=== PATIENT | female | born 1970 | race Caucasian/White ===

== ENCOUNTER 2024-09-28 16:09 | Emergency (ER) | payer OTHER, SELFPAY ==
[2024-09-28 16:19] VITALS: BP 104/71
[2024-09-28 19:31] VITALS: BMI 24.8
[2024-09-28 19:34] VITALS: BP 92/55
[2024-09-28 20:00] VITALS: BP 98/60
[2024-09-28] MEDS: DECADRON 10 MG IV (20:05)
[2024-09-28] MEDS: TORADOL 30 MG IV (20:05)
[2024-09-28 20:20] LABS: % Basophils 1.5 % (0-2); % Eosinophils 5.6 % (0-6); % Immature Granulocytes 0.2 % (0-0.5); % Lymphocytes 29.4 % (20.5-51.1); % Monocytes 10.6 % (1.7-9.3); % Neutrophils 52.7 % (42.2-75.2); Absolute Basophils 0.1 10^3/uL (0-0.2); Absolute Eosinophils 0.3 10^3/uL (0-0.7); Absolute Lymphocytes 1.6 10^3/uL (1.2-3.4); Absolute Monocytes 0.6 10^3/uL (0.1-0.6); Absolute Neutrophils 2.8 10^3/uL (1.4-6.5); Hematocrit 38.9 % (37.0-47.0); Hemoglobin 13.7 g/dL (12.0-16.0); Mean Corp Hgb Conc. 35.2 g/dL (33.0-37.0); Mean Corpuscular Hgb 30.9 pg (27.0-31.0); Mean Corpuscular Volume 87.6 fL (81.0-99.0); Mean Platelet Volume 9.1 fL (7.4-10.4); Nucleated Red Blood Cells % 0 %; Platelet Count 315 10^3/uL (130-400); Red Blood Cell Count 4.44 10^6/uL (4.20-5.40); Red Cell Dist. Width 12.3 % (11.5-14.5); White Blood Cell Count 5.4 10^3/uL (4.8-10.8)
[2024-09-28 20:41] LABS: Blood Urea Nitrogen 17 mg/dl (7-17); Calcium 9.6 mg/dl (8.4-10.2); Carbon Dioxide 25 mmol/L (22-30); Chloride 103 mmol/L (98-107); Estimated Creatinine Clearance 58 ml/min; Glucose 75 mg/dl (70-99); Potassium 4.6 mmol/L (3.5-5.1); Sodium 136 mmol/L (135-145); eGFR > 60.00
[2024-09-28 21:00] VITALS: BP 100/56
[2024-09-28] MEDS: DILAUDID 0.5 MG IV ×2 (21:00→23:45)
[2024-09-28] MEDS: ZOFRAN 4 MG IV (21:00)
[2024-09-28 22:00] VITALS: BP 98/60
[2024-09-28 23:30] VITALS: BP 110/58
--- NOTE | 2024-09-29 00:42 | ED.GENMED ---
History of Present Illness
General
Chief Complaint: Back Pain
Source: patient
Exam Limitations: none
Time Seen by Provider: 09/28/24 19:21
Nursing documentation reviewed up to this point in time: agreed with
Past History
Past History
ED Past Medical History: Asthma
ED Past Surgical History: Cholecystectomy, and Other (Gastric bypass surgery )
Social History
Tobacco: Non-smoker
Alcohol: None
Drug: None
Personal: Other
Living: with family
Employment: Other
Family History
Family History: Other
Phy Exam
General Physical Exam
General Presentation: moderate distress
General age: appears stated age
General Skin: warm and dry
General Habitus: normal
General Mental: alert
Gastrointestinal Exam
Gastrointestinal Exam: non tender and soft
Motor
Gait: normal
Tremors: none
Bilateral lower extremities: 4
Sensory
Sensory Exam: intact
Reflexes
Reflexes: +3: Left patellar and +3: Right patellar
Musculoskeletal Exam
Musculoskeletal Exam: full ROM, no edema and neuro vasc intact
Skin Exam
Skin Exam: normal color, warm/dry and no rash
Psychiatric Exam
Psychiatric Exam: normal mood/affect
Course
Orders/Labs/Results
Orders:
Orders
09/28/24 19:41
Dexamethasone Sod Phosphate [Decadron] 10 mg IV NOW STA
09/28/24 19:42
Ketorolac [Toradol] 30 mg IV NOW STA
09/28/24 20:05
Basic Metabolic Panel Urgent
Complete Blood Count/With Diff Urgent
09/28/24 20:47
HYDROmorphone [Dilaudid] 0.5 mg IV NOW STA
Ondansetron Injectable [Zofran] 4 mg IV NOW STA
09/28/24 22:17
Acetaminophen 1000MG/100Ml [Ofirmev] 1,000 mg in 100 ml IV ONCE
Acetaminophen IV Indication:: ED Narcotic Naive Pt-ONCE
09/28/24 22:29
US Periph Venous LOWER Ext RT Urgent
Comment:
Reason For Exam: pain and swelling
09/28/24 23:36
HYDROmorphone [Dilaudid] 0.5 mg IV NOW STA
Abnormal Lab Results
09/28/24
20:05
Monocytes % 10.6 H %
(1.7-9.3)
09/28/24 20:05
09/28/24 20:05
Vital Signs
Initial and Last Documented VS:
Initial Vital Signs
Temp Pulse Resp BP Pulse Ox
99.0 F 88 18 104/71 96
09/28/24 16:19 09/28/24 16:19 09/28/24 16:19 09/28/24 16:19 09/28/24 16:19
Last Documented Vital Signs
Temp Pulse Resp BP Pulse Ox
99.0 F 78 18 110/58 98
09/28/24 16:19 09/28/24 22:00 09/28/24 22:00 09/28/24 23:30 09/28/24 23:30
ED Attending Note
-
Portions of this chart may have been created with voice recognition software.� Occasional wrong word or��sound alike� substitutions may have occurred due to the inherent limitations of voice recognition software.
Discharge Plan
Departure
Patient Disposition: Home (Routine Discharge)
Date of Disposition: 09/28/24
Time of Disposition: 23:36
Patient with high blood pressure during this ER visit?: No
Condition: Good
Covid-19: Not Applicable
Discharge Problem:
Sciatic leg pain
Instructions: Sciatica (DC)
Prescriptions:
New
prednisone 10 mg Tablet
See Rx Instructions .ROUTE .COMPLEX Qty: 30 0RF
Rx Instructions:
Take By Mouth:
40 mg daily x3 days, 30 mg daily x3 days,
20 mg daily x3 days, 10 mg daily x3 days.
ketorolac 10 mg tablet
10 mg PO Q8H PRN (Reason: Pain) 4 Days Qty: 12 0RF
No Action
lamotrigine [Lamictal] 200 MG tablet
300 mg PO DAILY
levothyroxine 50 MCG tablet
50 mcg PO DAILY
fluoxetine 20 MG capsule
20 mg PO DAILY
chlorpheniramine-pseudoephed 1 TAB tablet
1 tab PO PRN PRN (Reason: allergy)
ibuprofen 600 MG tablet
600 mg PO Q6HPRN PRN (Reason: pain) Qty: 20 0RF
venlafaxine [Effexor XR] 150 mg Capsule,Extended Release 24hr
150 mg PO DAILY
pantoprazole [Protonix] 40 mg Tablet,Delayed Release (Dr/Ec)
40 mg PO DAILY
sucralfate 1 GM/10 ML suspension
1 gm PO BID
Referrals:
Jacqueline Warner CRNP [Family Provider] -
Interventions
Interventions:
*Risk Screen - Suicide Last Done: 09/28/24 16:19
*General Assessment Last Done: 09/28/24 19:32
*Neglect/Abuse Screening Last Done: 09/28/24 19:35
*ED- Fall Risk Assessment Last Done: 09/28/24 19:32
*ED COVID-19 Vaccine History Last Done: 09/28/24 19:32
*Nursing Disposition Last Done: 09/29/24 00:01
ED-Musculoskeletal Assessment Last Done: 09/28/24 19:39
Discharge Date and Time
Discharge Date/Time: 09/29/24 00:02
Print Language: [id number]
== END 2024-09-29 00:02 | disposition home or self-care (01) ==
LOC: EMR 16:09
PROVIDERS: Nurse Practitioner; EMERGENCY PHYSICIAN Emergency Medicine; FAMILY PHYSICIAN Nurse Practitioner Family
DX: M54.41 Lumbago with sciatica, right side (principal); M79.604 Pain in right leg; J45.909 Unspecified asthma, uncomplicated; I10 Essential (primary) hypertension; G47.30 Sleep apnea, unspecified; E03.9 Hypothyroidism, unspecified; F41.9 Anxiety disorder, unspecified; F32.A Depression, unspecified; F31.9 Bipolar disorder, unspecified; Z98.84 Bariatric surgery status; Z90.49 Acquired absence of other specified parts of digestive tract
CPT/HCPCS: 99284; 80048; 85025; 93971

== ENCOUNTER 2024-10-02 07:44 | Inpatient (IN) | payer OTHER, SELFPAY ==
[2024-09-30 10:50] VITALS: BMI 26.6
[2024-09-30 10:52] VITALS: BP 148/97
--- NOTE | 2024-09-30 11:48 | ED.GENMED ---
History of Present Illness
General
Chief Complaint: Musculo-Skeletal Complaint
Source: patient
Exam Limitations: none
Time Seen by Provider: 09/30/24 11:21
Nursing documentation reviewed up to this point in time: agreed with
History of Present Illness
History of Present Illness:
Patient is a 54-year-old female with history hypertension presenting to the emergency department with intractable right leg pain now radiating to right low back. Patient seen in ED 2 days ago for similar symptoms, given IV steroids, IV narcotic
medication discharged with suspected sciatica pain.
Patient presents again today with worsening pain, significantly worse with movement. Patient states she has been unable to move much at home. She is having difficulties getting to the bathroom. Pain is most severe in her right lower leg although
it is now radiating up into her right low back.
She denies any associated fever, chills, numbness/tingling, or weakness in lower extremities. No groin paresthesia or loss of bowel/bladder function. She has no history of IV drug use.
Patient denies any recent trauma.
Past History
Past History
ED Past Medical History: Asthma
ED Past Surgical History: Cholecystectomy, and Other (Gastric bypass surgery )
Social History
Tobacco: Non-smoker
Alcohol: None
Drug: None
Personal: Other
Living: with family
Employment: Other
Family History
Family History: Other
Review of Systems
Review of Systems
Allergies reviewed?: Yes
All Other Systems: ROS reviewed and negative except as documented in HPI and ROS
Phy Exam
Physical Exam
Physical Exam:
Vitals: Hypertensive on arrival,
General: Patient is writhing in pain and moaning on initial evaluation
Skin: Warm and dry, no rashes or lesions
Head: Normocephalic, atraumatic
Eyes: Sclera nonicteric.
Throat: Protecting airway
Neck: Normal ROM, no cervical spine tenderness, no meningismus
Cardiac: Regular rate and rhythm, no murmurs.
Pulm: Normal respiratory effort, no wheezes, rales, rhonchi heard on exam.
Abdomen: Abdomen soft and nontender.
Back: No midline spinal tenderness. No rash or ecchymosis. Minimal tenderness at right SI joint
Extremities: Tenderness to right calf without any obvious deformity. No bony tenderness of the right lower extremity. No erythema, warmth, or edema extremity. Sensation intact in RLE with palpable DP pulse and normal capillary refill. Strength
5/5 in b/l lower extremities.
Neuro: AAOx3. CN II-XII intact. No focal neurologic deficits.
Psychiatric: Normal affect.
Course
Orders/Labs/Results
Orders:
Orders
09/30/24 Breakfast
Regular
At Your Request: Full Participation
09/30/24 11:46
HYDROmorphone [Dilaudid] 0.5 mg IV NOW STA
Lidocaine [Lidocaine 4% Patch] 1 patch TOPICAL NOW STA
Apply Lidocaine patch(s) to:: Right lower back
Ondansetron Injectable [Zofran] 4 mg IV NOW STA
Lumbar Spine, 2 or 3 View [CR Lumbar Spine 2 Or 3 Views] Urgent
Comment:
Reason For Exam: Right low back pain radiating to right leg
09/30/24 12:11
Basic Metabolic Panel Urgent
Complete Blood Count/With Diff Urgent
Magnesium Urgent
Total CK [Creatine Phosphokinase] Urgent
09/30/24 13:07
diazePAM [Valium Injection] 2 mg IV NOW STA
09/30/24 13:43
PT Consult [Pt Eval And Treat] Urgent
Activity Level: As Tolerated
09/30/24 16:00
Acetaminophen [Tylenol] 1,000 mg PO TID
09/30/24 16:22
Admit/Transfer Patient As Directed
Co-Sign Provider:
Level of Care: Observation services
Assign to:: Medical/Surgical
Physician / Group: Shelley
Diagnosis: Back Pain
PRN Pain Medication Management As Directed
May give lesser potent ordered pain med per pt: Yes
preference::
Protocol:: Medication orders for pain may be administered in a
manner that supports deferring to patient preference
when the pt is:
- Requesting an ordered lesser potent pain medication.
Least to most potent pain medications are defined
as: acetaminophen < NSAID < tramadol < opioids
(morphine, oxycodone, hydromorphone).
- Requesting a lesser dose of the same medication IF
ORDERED.
- Requesting a less intrusive route of administration
if both routes are prescribed by the provider (PO <
IV).
09/30/24 16:23
Code Status As Directed
Resuscitation Status: Full Code
09/30/24 16:58
HYDROmorphone [Dilaudid] 0.25 mg IV Q3HPRN PRN
09/30/24 19:26
Ketorolac [Toradol] 10 mg IV Q6HPRN PRN
diazePAM [Valium Injection] 2 mg IV Q6HPRN PRN
09/30/24 19:26
Activity As Directed
Activity Level: Out of Bed-Early Mobility
With Assistance
Pneumatic Compression Sleeves As Directed
Type: Knee high
Vital Signs As Directed
Frequency: Per unit guidelines
Ot Eval And Treat Routine
Pt Eval And Treat Routine
Activity Level: Out of Bed-Early Mobility
DX Deep Vein Thrombosis Video Routine
09/30/24 20:00
Sucralfate [Carafate] 1 gram PO BID
09/30/24 22:00
Doxepin [Sinequan] 10 mg PO HS
Gabapentin [Neurontin] 800 mg PO TID
Lamotrigine [Lamictal] 300 mg PO HS
Propranolol [Inderal] 40 mg PO TID
10/01/24 06:00
Levothyroxine [Synthroid] 50 mcg PO DAILY@0600
10/01/24 08:00
Lidocaine [Lidocaine 4% Patch] 1 patch TOPICAL DAILY
Apply Lidocaine patch(s) to:: right buttock
Pantoprazole [Protonix] 40 mg PO DAILY
Prednisone [Deltasone] 30 mg PO DAILY
Venlafaxine Extended Release [Effexor Xr] 150 mg PO DAILY
Abnormal Lab Results
09/30/24
12:11
RBC 4.18 L 10^6/uL
(4.20-5.40)
Hct 36.5 L %
(37.0-47.0)
Absolute Neuts (auto) 7.3 H 10^3/uL
(1.4-6.5)
Absolute Lymphs (auto) 0.7 L 10^3/uL
(1.2-3.4)
Neutrophils % 89.0 H %
(42.2-75.2)
Lymphocytes % 7.9 L %
(20.5-51.1)
BUN 21 H mg/dl
(7-17)
Glucose 113 H mg/dl
(70-99)
Creatine Kinase 245 H U/L
(30-135)
09/30/24 12:11
09/30/24 12:11
Vital Signs
Initial and Last Documented VS:
Initial Vital Signs
Temp Pulse Resp BP Pulse Ox
98.6 F 87 24 148/97 98
09/30/24 10:52 09/30/24 10:52 09/30/24 10:52 09/30/24 10:52 09/30/24 10:52
Last Documented Vital Signs
Temp Pulse Resp BP Pulse Ox
97.6 F 81 20 135/88 96
09/30/24 22:50 09/30/24 22:50 09/30/24 22:50 09/30/24 22:50 09/30/24 22:50
MDM/Problems Addressed
Differential Diagnosis Includes:
Not limited to: muscle spasm, radiculopathy, osteoarthritis, rhabdomyolysis, myositis, IT band syndrome, zoster, DVT, etc
MDM/Problems Addressed:
54 year old female presenting with intractable right lower back pain with radicular symptoms. Majority of pain in right calf. No recent trauma or infectious symptoms. No neurologic symptoms concerning for cauda equina. Vitals and exam as above.
Patient seen in ED 2 days ago w/ similar symptoms and negative RLE US for DVT. Symptoms most consistent with radiculopathy originating in lumbar spine. Do not suspect infectious process. Will obtain basic labs, CK, and check xray lumabr spine. Will
tx pain with dialudid and lidocaine patch.
Update: Patient still writing in pain following IV dilaudid. Will try valium. Labs unremarkable. Xray shows degenerative changes as well as narrowing at multiple levels of lumbosacral spine. Suspect radicular pain secondary to spinal stensois. Dispo
pending PT eval.
Update: PT down to evaluate patient at bedside. She is very unsteady on her feet as well as having significant pain with any movement. Ultimately PT does not feel safe for discharge home. Patient remains in significant discomfort despite multiple
rounds of narcotic IV medication. Given intractable pain and ambulatory dysfunction - will admit for continued management. Patient accepted to hospitalist service in stable condition.
Chronic conditions affecting care:
N/A
Acute Exacerbation and/or Progression of Chronic Illness:
N/A
*Radiology
Radiology exam reviewed: radiology read reviewed
*Pulse Oximetry
Patient hypoxic: no
*EKG
Interpreted by ED Provider?: NA
*Therapeutic Massage Technician Interpretation
Rate: Therapeutic Massage Technician- N/A
*Critical Care Note
Total Time (30-74mins, 75-104mins- exclusive of procedures): Not Applicable
Data Reviewed
Review of Other/Old Records Reveals: Records (ED records from 09/28/24 - no evidence of DVT discharged w/ suspected sciatica) and Radiology Studies (RLE US 09/28/24 - no DVT)
Patient Management
Discussion with other providers: Hospitalist
Escalation/DeEscalation of care consider admission/obs:
Admit for pain management, PT
ED Attending Note
-
Portions of this chart may have been created with voice recognition software.� Occasional wrong word or��sound alike� substitutions may have occurred due to the inherent limitations of voice recognition software.
Discharge Plan
Departure
Patient Disposition: Admit
Date of Disposition: 09/30/24
Time of Disposition: 15:26
Presentation/result/management discussed w/ accepting MD/DO: Hospitalist
Discharge Problem:
Radicular pain of right lower extremity, Spondylolisthesis at L4-L5 level
Interventions
Interventions:
*Risk Screen - Suicide Last Done: 09/30/24 19:57
*General Assessment Last Done: 09/30/24 11:12
*Neglect/Abuse Screening Last Done: 09/30/24 11:12
*ED- Fall Risk Assessment Last Done: 09/30/24 11:12
*ED COVID-19 Vaccine History Last Done: 09/30/24 19:57
*Nursing Disposition Last Done: 09/30/24 19:30
ED-Musculoskeletal Assessment Last Done: 09/30/24 11:12
Discharge Date and Time
Discharge Date/Time: 09/30/24 19:30
[2024-09-30] MEDS: ZOFRAN 4 MG IV (12:02)
[2024-09-30] MEDS: DILAUDID 0.5 MG IV (12:02)
[2024-09-30] MEDS: LIDOCAINE 4% PATCH 1 PATCH TOPICAL (12:03)
[2024-09-30 12:18] VITALS: BP 134/74
[2024-09-30 12:20] LABS: % Basophils 0.5 % (0-2); % Eosinophils 0.1 % (0-6); % Immature Granulocytes 0.2 % (0-0.5); % Lymphocytes 7.9 % (20.5-51.1); % Monocytes 2.3 % (1.7-9.3); Absolute Lymphocytes 0.7 10^3/uL (1.2-3.4); Absolute Monocytes 0.2 10^3/uL (0.1-0.6); Absolute Neutrophils 7.3 10^3/uL (1.4-6.5); Hematocrit 36.5 % (37.0-47.0); Hemoglobin 12.8 g/dL (12.0-16.0); Mean Corp Hgb Conc. 35.1 g/dL (33.0-37.0); Mean Corpuscular Hgb 30.6 pg (27.0-31.0); Mean Corpuscular Volume 87.3 fL (81.0-99.0); Mean Platelet Volume 9.1 fL (7.4-10.4); Nucleated Red Blood Cells % 0 %; Platelet Count 291 10^3/uL (130-400); Red Blood Cell Count 4.18 10^6/uL (4.20-5.40); Red Cell Dist. Width 12.4 % (11.5-14.5); White Blood Cell Count 8.2 10^3/uL (4.8-10.8)
[2024-09-30 12:34] LABS: Blood Urea Nitrogen 21 mg/dl (7-17); Calcium 9.7 mg/dl (8.4-10.2); Carbon Dioxide 24 mmol/L (22-30); Chloride 107 mmol/L (98-107); Estimated Creatinine Clearance 66 ml/min; Glucose 113 mg/dl (70-99); Magnesium 2.2 mg/dl (1.6-2.3); Potassium 4.3 mmol/L (3.5-5.1); Sodium 137 mmol/L (135-145); eGFR > 60.00
[2024-09-30 12:45] LABS: Creatine Phosphokinase 245 U/L (30-135)
[2024-09-30] MEDS: VALIUM INJECTION 2 MG IV ×2 (13:13→20:25)
[2024-09-30 14:00] VITALS: BP 122/69
--- NOTE | 2024-09-30 16:24 | W.PN.UPDATE ---
Update Note
Progress Note Update
This is an addendum to H&P written by Rose Reid on 09/30/2024.� Patient seen and examined independently with PA.
54-year-old female past medical history of hypertension, asthma, gastric bypass, anxiety/depression/bipolar disorder, presenting with intractable right leg pain with radiation to the right lower back.� Came to the emergency room 2 days ago given IV
steroids, narcotics for suspected sciatica.
No fevers or chills, numbness or tingling or focal weakness.� No incontinence.
Lumbar x-ray shows progressive displaced narrowing at multiple levels L2-S1, retrolisthesis of L5 and anterolisthesis of L4.
Recent venous ultrasound 2 days ago negative for DVT.
Patient given IV Dilaudid, diazepam, lidocaine patch.
Patient with acute lower back pain secondary to spinal stenosis.�
Continue IV toradol, Dilaudid, lidocaine patch, Tylenol, diazepam, steroid taper.� PT/OT.
--- NOTE | 2024-09-30 16:27 | HPS.HSE ---
Family Physician
-
Family Physician: DARIUS Michelle
Chief Complaint
-
Back / Right Leg Pain
History of Present Illness
Patient is a 54 y/o female past medical history of anxiety/depression/bipolar, and hypothyroidism who presents with back and right leg pain. Patient was seen here at the [facility] emergency department two days ago with severe right calf
pain. At that time she had an ultrasound that was negative for DVT. She was given steroids, and pain medications with some improvement in her symptoms and she was discharge home with oral Toradol and a prednisone taper. She returns today with
worsening pain particularly in the right buttock region. She denies numbness / tingling. She denies urinary incontinence.
Medical History
Past Medical History
Past Medical History: Reports Other
Additional Past Medical History:
Asthma
Sleep Apnea
Hypothyroidism
Anxiety / Depression / Bipolar Disorder
Past Surgical History: Reports Other
Additional Past Surgical History:
Gastric Bypass
Cholecystectomy
Hernia Repair
Social History
Tobacco: Non-smoker
Alcohol: None
Family History
Family History: Not pertinent
Allergies / Home Medications
Allergies reflects when Allergies were last updated in [facility].
Home Medications with original date entered in [facility]
Allergy/Medication List:
Allergies
Allergy/AdvReac Type Severity Reaction Status Date / Time
erythromycin base Allergy Rash/itchin Verified 09/30/24 10:55
[Erythromycin Base] g
Sulfa (Sulfonamide Allergy Hives Verified 09/30/24 10:55
Antibiotics)
seasonal allergies Allergy nasal Uncoded 09/30/24 10:55
symptoms,
ear
itchiness
Home Medications
levothyroxine 50 mcg tablet 50 mcg PO DAILY 01/11/17
ketorolac 10 mg tablet 10 mg PO Q8H PRN Pain 4 days #12 tabs 09/28/24
pantoprazole 40 mg tablet,delayed release (Protonix) 40 mg PO DAILY 09/28/24
prednisone 10 mg tablet See Rx Instructions .Route .COMPLEX #30 tabs 09/28/24
venlafaxine 150 mg capsule,extended release 24 hr (Effexor XR) 150 mg PO DAILY 09/28/24
cetirizine 10 mg tablet 10 mg PO DAILY 09/30/24
cholecalciferol (vitamin D3) 50 mcg (2,000 unit) tablet 50 mcg PO DAILY 09/30/24
doxepin 10 mg capsule 10 mg PO HS 09/30/24
gabapentin 800 mg tablet 800 mg PO TID 09/30/24
lamotrigine 150 mg tablet 300 mg PO HS 09/30/24
propranolol 40 mg tablet 40 mg PO TID 09/30/24
semaglutide (weight loss) 2.4 mg/0.75 mL subcutaneous pen injector (Wegovy) 2.4 mg SC FR 09/30/24
sucralfate 1 gram tablet 1 g PO BID 09/30/24
Review of Systems
-
A 12 point ROS was completed and negative except as noted: Yes
Constitutional: Denies Fever
Respiratory: Denies Cough or Trouble Breathing
Cardiac: Denies Chest Pain or Palpitations
Physical Exam
Vital Signs
Vital Signs
Temp Pulse Resp BP Pulse Ox
98.6 F 71 18 122/69 99
09/30/24 10:52 09/30/24 14:00 09/30/24 14:00 09/30/24 14:00 09/30/24 14:00
Physical Exam
General: Conversant and Other (Appears in pain; Difficult for patient to find a comfortable position)
HEENT: Anicteric and Moist mucous membranes
Respiratory: Clear and Non Labored Respirations
Cardiac: S1/S2 and Regular Rhythm
GI: Soft and Non Tender
Rectal: Deferred by Provider
Musculoskeletal: No Clubbing, No Cyanosis and Other (Hold RLE in flexed position at hip and knee)
Skin: Warm and Dry
Neuro: Awake, Alert, Oriented and Nonfocal/grossly intact
Psych: Calm
Laboratory Results
-
09/30/24 12:11
09/30/24 12:11
Data Reviewed
-
Diagnostic Radiology: Report Reviewed by me
Lab Data: Labs Reviewed by me
Impression/Plan
-
Intractable Back Pain with Radicular Symptoms secondary to Spinal Stenosis
-Continue prednisone taper
-Add Lidocaine Patch
-Add Tylenol 1000mg TID
-Continue Toradol IV for moderate pain, and Dilaudid for severe pain
-Continue Valium prn muscle spasms
-Consult PT/OT
Hypothyroidism
-Continue levothyroxine
Anxiety / Depression / Bipolar Disorder
-Continue patient's home regimen
Hx Gastric Bypass
-Continue Protonix ad Carafate
DVT proph: SCDs
Code Status: Full Code
--- NOTE | 2024-09-30 16:45 | EDRN ---
[id number] patient wasmoved from hallway to room 37 via stretcher. Patient was requesting of the previous nurse to use a purwick to go to the bathroom. This RN then entered the room offering to assist with a walker to ambulate to the bathroom as she had
been at home. Patient got herself up to the side of the bed and then used the walker to a standing position. Patient had no complaints about dizziness related to the pain medications received. patient then ambulated with walker to the bathroom,
turned and took a seated position, urinated, reached down to obtain toilet paper and wiped herself. Then patient stood from toilet, turned and flushed the toilet. Patient then moved the walker and used the sink to wash hands. The patient then turned
to use the walker and ambulated herself to the stretcher all while this RN was nearby for assistance. Patient was able to bring legs up to the stretcher by herself as well. Patient did experience some pain after getting back in bed. Awaiting orders
for additional pain medications.
[2024-09-30] MEDS: DILAUDID 0.25 MG IV ×2 (17:31→21:34)
[2024-09-30] MEDS: TYLENOL 1000 MG PO ×2 (17:32→23:43)
--- NOTE | 2024-09-30 17:51 | EDRN ---
When administering the pain medications after pharmacy approved them, this RN was questioned about the amount of Dilaudid being given. This RN stated that it was 0.25mg and the patient and the visitor inquired as to why the dose was less than the
previous. Explained the narcotic responsibility and that she is now being admitted and this is what the physician has ordered for admission as opposed to the ER order.
[2024-09-30] MEDS: TORADOL 10 MG IV (19:46)
[2024-09-30 19:48] VITALS: BP 138/87; BMI 27.8
--- NOTE | 2024-09-30 20:00 | PTCARENOTE ---
Pt. admitted from E.D., AAO x 3, vs stable, NSR on monitor, call brandt within reach.
[2024-09-30] MEDS: CARAFATE 1 GRAM PO (21:25)
[2024-09-30] MEDS: LAMICTAL 300 MG PO (21:26)
[2024-09-30] MEDS: NEURONTIN 800 MG PO (21:26)
[2024-09-30] MEDS: SINEQUAN 10 MG PO (21:27)
[2024-09-30] MEDS: INDERAL 40 MG PO (21:27)
[2024-09-30 22:50] VITALS: BP 135/88
[2024-10-01] VITALS (7 sets, daily range): BP systolic 114–143; BP diastolic 78–93; PULSE 80–82; O2SAT 96
[2024-10-01] MEDS: FLUSH (NSS) 1 FLUSH IV ×4 (00:39→05:33)
[2024-10-01] MEDS: DILAUDID 0.25 MG IV ×5 (00:39→21:14)
[2024-10-01] MEDS: VALIUM INJECTION 2 MG IV ×3 (04:49→18:35)
--- NOTE | 2024-10-01 05:00 | PTCARENOTE ---
Pt. having increasing pain 8/10 in right buttocks radiating down to right foot, gave Tylenol, Toradol, Dilaudid, and Valium with relief for only a short time per pt. Pt. sleeping on and off.
[2024-10-01] MEDS: SYNTHROID 50 MCG PO (05:30)
[2024-10-01] MEDS: TORADOL 10 MG IV (05:30)
[2024-10-01] MEDS: NEURONTIN 800 MG PO ×3 (07:56→22:50)
[2024-10-01] MEDS: TYLENOL 1000 MG PO ×3 (07:56→22:50)
[2024-10-01] MEDS: DELTASONE 30 MG PO (07:57)
[2024-10-01] MEDS: INDERAL 40 MG PO ×3 (07:58→22:50)
[2024-10-01] MEDS: PROTONIX 40 MG PO (07:58)
[2024-10-01] MEDS: CARAFATE 1 GRAM PO ×2 (07:58→21:16)
[2024-10-01] MEDS: EFFEXOR XR 150 MG PO (07:59)
[2024-10-01] MEDS: LIDOCAINE 4% PATCH 1 PATCH TOPICAL ×2 (07:59→23:35)
--- NOTE | 2024-10-01 08:15 | W.PN.HOSP.TC ---
Today's Communication/Plan
-
see A/P
Assessment / Plan
Assessment / Plan
HPI: 54 y/o female past medical history of hypertension, asthma, gastric bypass, anxiety/depression/bipolar, and hypothyroidism who presented with back and right leg pain. Patient was seen here at the [facility] emergency department two
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 At that time she had an ultrasound that was negative for DVT. She was given steroids, and pain medications with some improvement in her symptoms and she was discharged home with oral Toradol and a prednisone
taper. She returns with worsening pain particularly in the right buttock region. She denies numbness / tingling. She denies urinary incontinence.
A/P:
# Intractable Back Pain with Radicular Symptoms likely secondary to Spinal Stenosis
Lumbar x-ray shows progressive displaced narrowing at multiple levels L2-S1, retrolisthesis of L5 and anterolisthesis of L4.
Recent venous ultrasound negative for DVT.
Check MRI Lumbar spine
Continue prednisone taper
Added Lidocaine Patch, Added Tylenol 1000mg TID
Continue Toradol IV for moderate pain, and Dilaudid for severe pain
Continue Valium prn muscle spasms
Consult PT/OT
# Hypothyroidism
Continue levothyroxine
# Anxiety / Depression / Bipolar Disorder
Continue patient's home regimen
# Hx Gastric Bypass
Continue Protonix ad Carafate
DVT proph: SCDs
Code Status: Full Code
DW RN
Anticipated Discharge: 24 - 48 hours
Subjective/Interval History
-
Date of Service: October 01, 2024
Objective Data
-
Vital Signs:
Vital Signs
Temp Pulse Resp BP Pulse Ox
36.5 C 78 12 114/80 98
10/01/24 07:28 10/01/24 07:28 10/01/24 07:28 10/01/24 07:28 04/20/25 07:28
Review of Systems
-
Musculoskeletal: Reports Other (R lower extremity and R back pain)
Physical Exam
-
General: Well Developed, Well Nourished, No Apparent Distress, Comfortable and Conversant; Negative Respiratory Distress
HEENT: Normocephalic, Atraumatic, Nose Appears Normal and Ears Appear Normal; Negative Oxygen
Respiratory: Clear to Auscultation and Non Labored Respirations; Negative Accessory Resp Muscle Use
Cardiac: Regular Rhythm and S1/S2
GI: Soft, Nontender, Nondistended and Normal Bowel Sounds
Skin: Warm and Dry
Neuro: Awake, Alert, Oriented, AO x 3 and Nonfocal/Grossly Intact
Psych: Calm and Intact Judgement/Insight
Data Reviewed
-
Diagnostic Radiology: Report Reviewed by me
Labs: Labs Reviewed by me
[2024-10-01] MEDS: FLUSH (NSS) 2 FLUSH IV ×2 (11:28→12:18)
[2024-10-01] MEDS: DILAUDID 1 MG IV (11:29)
[2024-10-01] MEDS: ATIVAN 2 MG IV (12:17)
[2024-10-01] MEDS: NSS (PRESERVATIVE FREE) 1 ML IV (12:17)
[2024-10-01] MEDS: TORADOL 15 MG IV (21:15)
[2024-10-01] MEDS: LAMICTAL 300 MG PO (22:49)
[2024-10-01] MEDS: SINEQUAN 10 MG PO (22:50)
[2024-10-02] MEDS: TORADOL 10 MG IV ×3 (03:34→18:40)
[2024-10-02] MEDS: VALIUM INJECTION 2 MG IV ×3 (03:36→17:47)
[2024-10-02 04:33] LABS: Hematocrit 36.2 % (37.0-47.0); Hemoglobin 12.4 g/dL (12.0-16.0); Mean Corp Hgb Conc. 34.3 g/dL (33.0-37.0); Mean Corpuscular Hgb 30.2 pg (27.0-31.0); Mean Corpuscular Volume 88.3 fL (81.0-99.0); Platelet Count 293 10^3/uL (130-400); Red Cell Dist. Width 12.6 % (11.5-14.5); White Blood Cell Count 6.5 10^3/uL (4.8-10.8)
[2024-10-02 05:02] LABS: Blood Urea Nitrogen 17 mg/dl (7-17); Calcium 9.1 mg/dl (8.4-10.2); Carbon Dioxide 27 mmol/L (22-30); Chloride 105 mmol/L (98-107); Estimated Creatinine Clearance 75 ml/min; Glucose 90 mg/dl (70-99); Potassium 3.9 mmol/L (3.5-5.1); Sodium 139 mmol/L (135-145); eGFR > 60.00
[2024-10-02] MEDS: DILAUDID 0.25 MG IV ×5 (05:24→20:01)
[2024-10-02] MEDS: SYNTHROID 50 MCG PO (05:24)
[2024-10-02 07:35] VITALS: BP 138/97
[2024-10-02] MEDS: DELTASONE 30 MG PO (08:57)
[2024-10-02] MEDS: EFFEXOR XR 150 MG PO (08:57)
[2024-10-02] MEDS: CARAFATE 1 GRAM PO ×2 (08:57→20:01)
[2024-10-02] MEDS: NEURONTIN 800 MG PO ×3 (08:58→21:56)
[2024-10-02] MEDS: TYLENOL 1000 MG PO ×3 (08:58→21:57)
[2024-10-02] MEDS: LIDOCAINE 4% PATCH 1 PATCH TOPICAL (08:59)
[2024-10-02] MEDS: PROTONIX 40 MG PO (08:59)
[2024-10-02] MEDS: INDERAL 40 MG PO ×3 (09:00→21:56)
--- NOTE | 2024-10-02 09:08 | W.PN.HOSP.TC ---
Today's Communication/Plan
-
see AP
Assessment / Plan
Assessment / Plan
HPI: 54 y/o female past medical history of hypertension, asthma, gastric bypass, anxiety/depression/bipolar, and hypothyroidism who presented with back and right leg pain. Patient was seen here at the [facility] emergency department two
days [employer] with severe right calf pain. At that time she had an ultrasound that was negative for DVT. She was given steroids, and pain medications with some improvement in her symptoms and she was discharged home with oral Toradol and a prednisone
taper. She returns with worsening pain particularly in the right buttock region. She denies numbness / tingling. She denies urinary incontinence.
A/P:
# Intractable Back Pain with R Radicular Symptoms likely secondary to Spinal Stenosis
Lumbar x-ray shows progressive displaced narrowing at multiple levels L2-S1, retrolisthesis of L5 and anterolisthesis of L4.
Recent venous ultrasound negative for DVT.
MRI Lumbar spine severely limited secondary to severe motion degradation, noted possible severe central canal stenosis L4-5 and moderate to advanced central canal stenosis at L5-S1 as result of broad-based annular bulge/disc protrusion as well as
facet and ligamentum flavum hypertrophy.
Continue prednisone taper
Added Lidocaine Patch, Added Tylenol 1000mg TID
Continue Toradol IV for moderate pain, and Dilaudid for severe pain
Continue Valium prn muscle spasms
IR CS for ASIA eval
PT/OT eval
# Hypothyroidism
Continue levothyroxine
# Anxiety / Depression / Bipolar Disorder
Continue patient's home regimen
# Hx Gastric Bypass
Continue Protonix ad Carafate
DVT proph: SCDs
Code Status: Full Code
DW RN
Anticipated Discharge: Within 24 hours
Subjective/Interval History
-
Date of Service: October 02, 2024
Objective Data
-
Labs:
Laboratory Results
10/02/24
04:25
WBC 6.5
Hgb 12.4
Hct 36.2 L
Plt Count 293
Sodium 139
Potassium 3.9
Chloride 105
Carbon Dioxide 27
BUN 17
Creatinine 0.8
Glucose 90
Calcium 9.1
Vital Signs:
Vital Signs
Temp Pulse Resp BP Pulse Ox
36.7 C 76 18 138/97 98
10/02/24 07:35 10/02/24 07:35 10/02/24 07:35 10/02/24 07:35 10/02/24 07:35
I&O
10/01/24 10/02/24 10/03/24
06:59 06:59 06:59
Intake Total 480 / 480
Balance 480 / 480
Review of Systems
-
Musculoskeletal: Reports Other (R lower extremity and R back pain)
Physical Exam
-
General: Well Developed, Well Nourished, No Apparent Distress, Comfortable and Conversant; Negative Respiratory Distress
HEENT: Normocephalic, Atraumatic, Nose Appears Normal and Ears Appear Normal; Negative Oxygen
Respiratory: Clear to Auscultation and Non Labored Respirations; Negative Accessory Resp Muscle Use
Cardiac: Regular Rhythm and S1/S2
GI: Soft, Nontender, Nondistended and Normal Bowel Sounds
Skin: Warm and Dry
Neuro: Awake, Alert, Oriented, AO x 3 and Nonfocal/Grossly Intact
Psych: Calm and Intact Judgement/Insight
Data Reviewed
-
Diagnostic Radiology: Report Reviewed by me
Labs: Labs Reviewed by me
[2024-10-02 10:48] LABS: INR 1.03; PT 13.8 Sec (11.4-14.6)
--- NOTE | 2024-10-02 13:18 | CM ---
Patient seen bedside, initial assessment completed. Patient is a 54 y/o female past medical history of anxiety/depression/bipolar, and hypothyroidism who presents with back and right leg pain.
Patient resides w/ mother and daughter in [place]. Patient prev independent w/ ambulating without the use of a device, patient now using RW while in hospital. Independent w/ ADLs. Denies SNF/ HC hx.
Address, point of contact and insurance verified
PCP: Jacqueline Warner
Pharmacy: [facility]
Therapy assessed patient, poss home PT needs and RW at d/c. Will cont to follow for progress.
Per hospitalist, poss d/c tomorrow.
IRAD consulted
Plan: Home. Poss home PT and RW needs
[2024-10-02 14:50] VITALS: BP 133/89; BP_SYST 87
[2024-10-02 16:06] VITALS: BP 143/95
[2024-10-02 16:18] VITALS: BP 140/85
[2024-10-02] MEDS: SINEQUAN 10 MG PO (21:56)
[2024-10-02] MEDS: LAMICTAL 300 MG PO (21:56)
[2024-10-02 23:05] VITALS: BP 132/74
[2024-10-02 23:59] VITALS: BP 132/74
[2024-10-03] MEDS: TORADOL 10 MG IV (01:05)
[2024-10-03] MEDS: VALIUM INJECTION 2 MG IV ×2 (01:12→08:54)
[2024-10-03] MEDS: SYNTHROID 50 MCG PO (06:38)
[2024-10-03 07:35] VITALS: BP 131/86
[2024-10-03] MEDS: LIDOCAINE 4% PATCH 1 PATCH TOPICAL (08:51)
[2024-10-03] MEDS: DELTASONE 30 MG PO (08:52)
[2024-10-03] MEDS: NEURONTIN 800 MG PO (08:52)
[2024-10-03] MEDS: CARAFATE 1 GRAM PO (08:52)
[2024-10-03] MEDS: PROTONIX 40 MG PO (08:53)
[2024-10-03] MEDS: DILAUDID 0.25 MG IV (08:53)
[2024-10-03] MEDS: INDERAL 40 MG PO (08:53)
--- NOTE | 2024-10-03 09:19 | W.PN.HOSP.TC ---
Addendum entered and electronically signed by Paula Murillo MD 10/03/24 12:29:
total DC time 36 min
Original Note:
Today's Communication/Plan
-
DC home
Assessment / Plan
Assessment / Plan
HPI: 54 y/o female past medical history of hypertension, asthma, gastric bypass, anxiety/depression/bipolar, and hypothyroidism who presented with back and right leg pain. Patient was seen here at the [facility] emergency department two
days [employer]LY[employer] with severe right calf pain. At that time she had an ultrasound that was negative for DVT. She was given steroids, and pain medications with some improvement in her symptoms and she was discharged home with oral Toradol and a prednisone
taper. She returns with worsening pain particularly in the right buttock region. She denies numbness / tingling. She denies urinary incontinence.
A/P:
# Intractable Back Pain with R Radicular Symptoms likely secondary to Spinal Stenosis
Lumbar x-ray shows progressive displaced narrowing at multiple levels L2-S1, retrolisthesis of L5 and anterolisthesis of L4.
Recent venous ultrasound negative for DVT.
MRI Lumbar spine severely limited secondary to severe motion degradation, noted possible severe central canal stenosis L4-5 and moderate to advanced central canal stenosis at L5-S1 as result of broad-based annular bulge/disc protrusion as well as
facet and ligamentum flavum hypertrophy.
Continue prednisone taper
Added Lidocaine Patch, Added Tylenol 1000mg TID
Continue Toradol IV for moderate pain, and Dilaudid for severe pain -> Change to Naproxen (informed to take with food) and Low dose Tramadol (informed to follow up with PCP if need refill)
Valium prn for muscle spasms while in the hospital
s/p IR ASIA injection 10/02
PT/OT cleared for home
# Hypothyroidism
Continue levothyroxine
# Anxiety / Depression / Bipolar Disorder
Continue patient's home regimen
# Hx Gastric Bypass
Continue Protonix ad Carafate
DVT proph: SCDs
Code Status: Full Code
DW RN
Anticipated Discharge: Today
Subjective/Interval History
-
Date of Service: October 03, 2024
Objective Data
-
Vital Signs:
Vital Signs
Temp Pulse Resp BP Pulse Ox
36.8 C 82 16 131/86 97
10/03/24 07:35 10/03/24 07:35 10/03/24 07:35 10/03/24 07:35 10/03/24 07:35
I&O
10/02/24 10/03/24 10/04/24
06:59 06:59 06:59
Intake Total 480 / 480 480 / 480
Balance 480 / 480 480 / 480
--- NOTE | 2024-10-03 10:44 | CM ---
Patient stable for d/c today. Therapy cont to recommend home PT and provided RW to patient bedside. Hospitalist provided script.
CM met w/ patient bedside, agreeable to d/c today and home PT. Patient is okay w/ [facility]. [facility] referral placed in [facility]
Patient has private transport home
Plan: Home w/ [facility]. RW provided
--- NOTE | 2024-10-03 11:28 | VNURNOTE ---
Home Health Liaison met with patient at bedside to discuss [facility] nurse/therapy, visits, schedule and homebound status. Patient is agreeable and understands that visits at home will be 2-3 x per week to assess and teach medical management. [facility] 1-2 days after discharge from .
[facility].
[2024-10-03] MEDS: TYLENOL 1000 MG PO (11:29)
[2024-10-03] MEDS: EFFEXOR XR 150 MG PO (11:35)
--- NOTE | 2024-10-03 12:16 | W.DCSUMMARY ---
Discharge Summary
Discharge Data
Date of Admission: 10/02/24
Date of Discharge: 10/03/24
-
Pending Results: No
Hospital Course
Principal Diagnosis:
Intractable Back Pain with R Radicular Symptoms likely secondary to Spinal Stenosis
Chronic Diagnoses:�
Hypertension
Asthma
Hypothyroidism on levothyroxine
Anxiety / Depression / Bipolar Disorder
Hx Gastric Bypass
Consultations:�
Interventional radiology
Procedures:�
Epidural steroid injection for right lower back pain with sciatica
Clinical course:�
This is a 54 y/o female with past medical history as stated above, who presented with right lower back pain and right leg pain.
Problem 1:
Intractable Back Pain with R Radicular Symptoms likely secondary to Spinal Stenosis.
Her Lumbar x-ray showed progressive displaced narrowing at multiple levels L2-S1, retrolisthesis of L5 and anterolisthesis of L4.
Her MRI Lumbar spine was severely limited secondary to motion degradation, but noted possible severe central canal stenosis L4-5 and moderate to advanced central canal stenosis at L5-S1 as result of broad-based annular bulge/disc protrusion as well
as facet and ligamentum flavum hypertrophy.
She underwent IR epidural steroid injection to help relieve the lower back pain on 10/02/2024.
Of note, she was recently started with steroid for anti-inflammatory effect, which she was continued while in the hospital. She can continue with steroid taper outpatient.
She can continue Tylenol 1000mg TID, naproxen as needed, and tramadol as needed for pain control following discharge.
She was cleared by PT OT to return home.
As for the rest of her medical problems, they were stable during her hospital stay.
Discharge Plan
-
Patient Disposition: Home (Routine Discharge)
Discharge Diagnosis/Procedures: Lower back pain with R Radicular Symptoms likely secondary to Spinal Stenosis;
status post epidural steroid injection this admission
Condition: Good
Diet: As tolerated
Activity: As tolerated
Driving Restrictions: As prior to admission
Referrals:
Jacqueline Warner CRNP [Family Provider] - in less than 1 week
Additional Discharge Medication Instructions: Continue pain control with Tylenol (1000 mg three times a day around the clock), naproxen as needed, Tramadol as needed
Continue steroid taper
Prescriptions:
New
acetaminophen [Tylenol Extra Strength] 500 mg Tablet
1,000 mg PO TID 7 Days Qty: 42 0RF
naproxen 375 mg tablet
375 mg PO BID PRN (Reason: Pain) Qty: 14 0RF
tramadol 25 mg tablet
25 mg PO Q6H PRN (Reason: Pain) Qty: 5 0RF
Continued
levothyroxine 50 MCG tablet
50 mcg PO DAILY
venlafaxine [Effexor XR] 150 mg Capsule,Extended Release 24hr
150 mg PO DAILY
pantoprazole [Protonix] 40 mg Tablet,Delayed Release (Dr/Ec)
40 mg PO DAILY
prednisone 10 mg Tablet
See Rx Instructions .ROUTE .COMPLEX Qty: 30 0RF
Rx Instructions:
Take By Mouth:
40 mg daily x3 days, 30 mg daily x3 days,
20 mg daily x3 days, 10 mg daily x3 days.
lamotrigine 150 mg Tablet
300 mg PO HS
cetirizine 10 mg Tablet
10 mg PO DAILY
sucralfate 1 gram Tablet
1 g PO BID
doxepin 10 mg capsule
10 mg PO HS
Patient Comments:
patient says that she is taking 2t at bedtime
propranolol 40 mg tablet
40 mg PO TID
gabapentin 800 mg tablet
800 mg PO TID
cholecalciferol (vitamin D3) 50 mcg (2,000 unit) Tablet
50 mcg PO DAILY
Wegovy 2.4 mg/0.75 mL pen injector
2.4 mg SC FR
Discontinued
ketorolac 10 mg tablet
10 mg PO Q8H PRN (Reason: Pain) 4 Days Qty: 12 0RF
Discharge Orders:
Discharge Patient (As Directed); Ordered 10/03/24
Ordered By: Paula Murillo
Discharge Date and Time
Discharge Date/Time: 10/03/24 12:12
Print Language: AZERI
== END 2024-10-03 12:12 | disposition home health service (06) | DRG 552 ==
LOC: 4 WEST ACU 07:44
PROVIDERS: Physician Assistant; Radiology Vascular & Interventional Radiology; ADMITTING PHYSICIAN Hospitalist; ATTENDING PHYSICIAN Internal Medicine; EMERGENCY PHYSICIAN Student in an Organized Health Care Education/Training Program; FAMILY PHYSICIAN Nurse Practitioner Family
PROC: 3E0S33Z Introduction of Anti-inflammatory into Epidural Space, Percutaneous Approach (ICD-10-PCS; 2024-10-02)
PROC: BR191ZZ Fluoroscopy of Lumbar Spine using Low Osmolar Contrast (ICD-10-PCS; 2024-10-02)
DX: M54.16 Radiculopathy, lumbar region (principal); M54.41 Lumbago with sciatica, right side; M48.061 Spinal stenosis, lumbar region without neurogenic claudication; I10 Essential (primary) hypertension; J45.909 Unspecified asthma, uncomplicated; E03.9 Hypothyroidism, unspecified; Z79.890 Hormone replacement therapy; F31.9 Bipolar disorder, unspecified; F41.9 Anxiety disorder, unspecified; Z98.84 Bariatric surgery status; M43.16 Spondylolisthesis, lumbar region; M43.17 Spondylolisthesis, lumbosacral region; G47.30 Sleep apnea, unspecified; Z79.899 Other long term (current) drug therapy
CPT/HCPCS: 62323; 72100; 72148; 80048; 82550; 83735; 85025; 85027; 85610; 96374; 96375; 97166; 97530; 97535; 99285

== ENCOUNTER → 2025-02-22 13:51 | Outpatient (REF) | payer OTHER, SELFPAY | LOC: EMG 13:51 | PROVIDERS: ATTENDING PHYSICIAN Neurological Surgery; FAMILY PHYSICIAN Nurse Practitioner Family | DX: M48.02 Spinal stenosis, cervical region (principal); R20.0 Anesthesia of skin | CPT/HCPCS: 95886; 95911 ==